=== PATIENT | female | born 2000 | race African-American/Black ===

== ENCOUNTER 2019-08-30 21:34 | Emergency (ER) | payer MEDICAID ==
[~2019-08-30] VITALS: Ht 165.1 cm; Wt 64.0 kg
[2019-08-30 21:59] VITALS: BP 125/63
[2019-08-30] MEDS ORDERED: ACETAMINOPHEN 650MG/20.3ML UDC PO ONE (22:30)
[2019-08-30] MEDS ORDERED: KETOROLAC 60MG/2ML VIAL IM ONE (22:30)
[2019-08-30] MEDS ORDERED: ACETAMINOPHEN 325MG TABLET PO ONE (22:30)
== END 2019-08-30 23:10 | disposition home or self-care (01) ==
LOC: ER 21:34
DX: Z20.818 Contact with and (suspected) exposure to other bacterial communicable diseases (principal); Z71.89 Other specified counseling
CPT/HCPCS: 96372; 99283; J1885